=== PATIENT | female | born 1965 | race Hispanic/Latino ===

== ENCOUNTER 2019-06-08 14:20 | Emergency (ER) | payer SELFPAY ==
[2019-06-08 15:18] LABS: Absolute Lymphocytes (CBC) 1.7 K/uL (0.7-4.9); Basophils % 0.3 % (0-1.3); Hematocrit 39.4 % (36.0-45.0); Lymphocytes % 30.9 % (15.3-44.8); MPV 8.4 fL (7.6-11.3); RBC Red Blood Cell Count 4.68 M/uL (3.86-4.86)
[2019-06-08] MEDS ORDERED: PHENYTOIN ER 100 MG CAP PO ONE (15:18)
[2019-06-08 15:28] LABS: BUN Blood Urea Nitrogen 13 mg/dL (7-18); Bicarbonate 26 mmol/L (21-32); Glucose Level 88 mg/dL (74-106); Potassium 3.8 mmol/L (3.5-5.1); Sodium Level 139 mmol/L (136-145)
[2019-06-08 15:30] LABS: Barbiturates NEGATIVE (NEGATIVE); Benzodiazepines NEGATIVE (NEGATIVE); Cocaine NEGATIVE (NEGATIVE); METHAMPHETAM NEGATIVE (NEGATIVE); Methadone NEGATIVE (NEGATIVE); Opiates NEGATIVE (NEGATIVE); Phencyclidine NEGATIVE (NEGATIVE); THC Cannibis NEGATIVE (NEGATIVE)
[2019-06-08 15:56] LABS: Urine Bacteria >50 /HPF (<20); Urine Culture Reflex Order REFLEXED
--- NOTE | 2019-06-08 16:08 | RAD REPORT ---
EXAM DESCRIPTION: RAD - Hand Right 3 View - 06/08/2019 3:57 pm CLINICAL HISTORY: PAIN Pain, seizure COMPARISON: No comparisons FINDINGS: No acute fracture or subluxation seen. Mild radiocarpal arthritic changes are present.
[2019-06-08 16:11] LABS: Urine Blood TRACE (NEG); Urine Glucose NEGATIVE (NEG); Urine Protein NEGATIVE (NEG); Urine Specific Gravity >1.030 (1.005-1.030)
--- NOTE | 2019-06-08 16:40 | ER ---
Nurse's Notes [facility] Name: Yanet Castillo Age: 53 yrs Sex: Female : 1965 Arrival Date: 06/08/2019 Time: 14:27 Bed 17 Private MD: Diagnosis: Epilepsy and recurrent seizures;Urinary tract infection, site not specified Presentation: 06/08 14:28 Presenting complaint: EMS states: pt had a witnessed seizure like activity lasting sg about 30 seconds with convulsions of the body, pt is a resident [facility], pt last known seizure activity reported to be in February 2019, denied any injuries at this time. Transition of care: patient was received from another setting of care (rehabilitation facility). Onset of symptoms was June 08, 2019. Risk Assessment: Do you want to hurt yourself or someone else? Patient reports no desire to harm self or others. Initial Sepsis Screen: Does the patient meet any 2 criteria? No. Patient's initial sepsis screen is negative. Does the patient have a suspected source of infection? No. Patient's initial sepsis screen is negative. Care prior to arrival: None. 14:28 Method Of Arrival: EMS: [facility] sg 14:28 Acuity: SOPHIE 3 sg Historical: - Allergies: 14:33 No Known Allergies; sg - Home Meds: 14:33 Dilantin Oral [Active]; sg - PMHx: 14:33 HIV; Bronchitis; sg - Immunization history:: Adult Immunizations unknown. - Social history:: Smoking status: Patient/guardian denies using tobacco. - Ebola Screening: : Patient negative for fever greater than or equal to 101.5 degrees Fahrenheit, and additional compatible Ebola Virus Disease symptoms Patient denies exposure to infectious person Patient denies travel to an Ebola-affected area in the 21 days before illness onset No symptoms or risks identified at this time. - Family history:: not pertinent. - Hospitalizations: : No recent hospitalization is reported. Screenin:09 Abuse screen: Denies threats or abuse. Denies injuries from another. Nutritional sg screening: No deficits noted. Tuberculosis screening: No symptoms or risk factors identified. Never had TB. Fall Risk None identified. Assessment: 15:10 Reassessment: Patient appears in no apparent distress at this time. Patient and/or sg family updated on plan of care and expected duration. Pain level reassessed. Patient is alert, oriented x 3, equal unlabored respirations, skin warm/dry/pink. Vital Signs: 14:33 BP 148 / 96; Pulse 64 MON; Resp 17 S; Temp 97.6; Pulse Ox 100% on R/A; sg 15:32 BP 140 / 74; Pulse 63; Resp 17; Pulse Ox 100% on R/A; sg ED Course: 14:27 Patient arrived in ED. sg 14:32 Triage completed. sg 14:33 Arm band placed on. sg 14:52 Robbin Kimble MD is Attending Physician. rn 15:01 Bubba Estrada RN is Primary Nurse. sg 15:09 No provider procedures requiring assistance completed. Initial lab(s) drawn, by nm, sg sent to lab. Urine collected: clean catch specimen. 15:24 EKG done, by aircraft maintenance technician. reviewed by Robbin Kimble MD. sm3 Administered Medications: 15:20 Drug: Dilantin 500 mg Route: PO; sg Outcome: 16:38 Discharge ordered by . rn 16:43 Patient left the ED. sg Signatures: Bubba Estrada, RN RN Robbin Kimble MD MD rn Montes, Shakira sm3
--- NOTE | 2019-06-08 16:41 | EDPHYS ---
Physician Documentation [facility] Name: Yanet Castillo Age: 53 yrs Sex: Female : 1965 Arrival Date: 06/08/2019 Time: 14:27 Bed 17 Private MD: ED Physician Robbin Kimble HPI: 06/08 15:09 This 53 yrs old Other Female presents to ER via EMS with complaints of Probable Seizure.rn 15:09 The patient presents after having a single isolated seizure. Character of seizure(s): rn Loss of consciousness: the patient did not lose consciousness, Motor activity: generalized, Incontinence: none, Apnea: the patient did not experience apnea, Circulation: the patient did not experience evidence of pulse disturbance. Associated injury: The patient did not suffer any apparent associated injury. Current symptoms: Currently, the patient is not experiencing any symptoms. The patient has experienced similar episodes in the past. Reports has had seizures for years, is supposed to take dilantin, but has not been on dilantin for sometime. Last seizure was in february of this year. Seizures as result of previous head trauma. No fever or injury. States HIV+ but last check at [facility] was undetectable. No chest pain/sob/abd pain.. Historical: - Allergies: 14:33 No Known Allergies; sg - Home Meds: 14:33 Dilantin Oral [Active]; sg - PMHx: 14:33 HIV; Bronchitis; sg - Immunization history:: Adult Immunizations unknown. - Social history:: Smoking status: Patient/guardian denies using tobacco. - Ebola Screening: : Patient negative for fever greater than or equal to 101.5 degrees Fahrenheit, and additional compatible Ebola Virus Disease symptoms Patient denies exposure to infectious person Patient denies travel to an Ebola-affected area in the 21 days before illness onset No symptoms or risks identified at this time. - Family history:: not pertinent. - Hospitalizations: : No recent hospitalization is reported. ROS: 15:09 Constitutional: Negative for fever, chills, and weight loss, Eyes: Negative for injury, rn pain, redness, and discharge, Neck: Negative for injury, pain, and swelling, Cardiovascular: Negative for chest pain, palpitations, and edema, Respiratory: Negative for shortness of breath, cough, wheezing, and pleuritic chest pain, Abdomen/GI: Negative for abdominal pain, nausea, vomiting, diarrhea, and constipation, MS/Extremity: Negative for injury and deformity, Skin: Negative for injury, rash, and discoloration, Neuro: Negative for headache, weakness, numbness, tingling Exam: 15:09 Constitutional: This is a well developed, well nourished patient who is awake, alert, rn and in no acute distress. Head/Face: Normocephalic, atraumatic. Eyes: Pupils equal round and reactive to light, extra-ocular motions intact. Lids and lashes normal. Conjunctiva and sclera are non-icteric and not injected. Cornea within normal limits. Periorbital areas with no swelling, redness, or edema. ENT: MMM Neck: Trachea midline, no thyromegaly or masses palpated, and no cervical lymphadenopathy. Supple, full range of motion without nuchal rigidity, or vertebral point tenderness. No Meningismus. Cardiovascular: Regular rate and rhythm. No pulse deficits. Respiratory: Lungs have equal breath sounds bilaterally, clear to auscultation. No increased work of breathing, no retractions or nasal flaring. Abdomen/GI: soft, non-tender MS/ Extremity: Pulses equal, no cyanosis. Neurovascular intact. Full, normal range of motion. Equal circumference. Neuro: Awake and alert, GCS 15, oriented to person, place, time, and situation. Cranial nerves II-XII grossly intact. Motor strength 5/5 in all extremities. Sensory grossly intact. Cerebellar exam normal. 15:22 ECG was reviewed by the Attending Physician. rn Vital Signs: 14:33 BP 148 / 96; Pulse 64 MON; Resp 17 S; Temp 97.6; Pulse Ox 100% on R/A; sg 15:32 BP 140 / 74; Pulse 63; Resp 17; Pulse Ox 100% on R/A; sg MDM: 14:52 Patient medically screened. rn 16:37 Differential diagnosis: seizure. Data reviewed: vital signs, nurses notes, lab test rn result(s), EKG, radiologic studies, and as a result, I will discharge patient. Counseling: I had a detailed discussion with the patient and/or guardian regarding: the historical points, exam findings, and any diagnostic results supporting the discharge/admit diagnosis, lab results, radiology results, the need for outpatient follow up, to return to the emergency department if symptoms worsen or persist or if there are any questions or concerns that arise at home. Response to treatment: the patient's condition has returned to base line, the patient is now symptom free, and as a result, I will discharge patient. Special discussion: I discussed with the patient/guardian in detail that at this point there is no indication for admission to the hospital. It is understood, however, that if the symptoms persist or worsen the patient needs to return immediately for re-evaluation. 06/08 14:44 Order name: Urine Dipstick--Ancillary (enter results); Complete Time: 16:37 bd 06/08 14:44 Order name: Urine --Ancillary (enter results); Complete Time: 16:37 bd 06/08 14:45 Order name: Glucose, Ancillary Testing; Complete Time: 14:52 EDMS 06/08 14:57 Order name: CBC with Diff; Complete Time: 16:01 06/08 14:57 Order name: Basic Metabolic Panel; Complete Time: 16:01 06/08 14:57 Order name: Urine Drug Screen; Complete Time: 16:01 06/08 14:57 Order name: Urine Microscopic Only; Complete Time: 16:01 06/08 14:57 Order name: Urine Dipstick-Ancillary (obtain specimen); Complete Time: 15:02 06/08 14:57 Order name: EKG; Complete Time: 14:59 06/08 14:57 Order name: EKG - Nurse/Tech; Complete Time: 16:20 06/08 15:12 Order name: XRAY Hand RIGHT 3 View 06/08 16:16 Order name: Urine Culture EDMS EC:22 Rate is 61 beats/min. Rhythm is regular. QRS [place] is Normal. [place] interval is normal. QRS rn interval is normal. QT interval is normal. No Q waves. T waves are Normal. No ST changes noted. Clinical impression: Normal ECG. Interpreted by me. Reviewed by me. Administered Medications: 15:20 Drug: Dilantin 500 mg Route: PO; sg Disposition: 06/08/19 16:38 Discharged to Home. Impression: Epilepsy and recurrent seizures, Urinary tract infection, site not specified. - Condition is Stable. - Discharge Instructions: Seizure, Adult, Urinary Tract Infection, Adult. - Prescriptions for Dilantin Extended 100 mg Oral capsule - take 3 capsule by ORAL route once daily; 90 capsule. Macrobid 100 mg Oral Capsule - take 1 capsule by ORAL route every 12 hours for 7 days; 14 capsule. - Medication Reconciliation Form, Thank You Letter, Antibiotic Education, Prescription Opioid Use form. - Follow up: Private Physician; When: As needed; Reason: Recheck today's complaints, Re-evaluation by your physician. - Problem is new. - Symptoms have improved. Signatures: Dispatcher [employer] EDBubba Whitman RN RN sg Robbin Kimble MD MD contracts attorney: (The following items were deleted from the chart) 16:43 16:38 06/08/2019 16:38 Discharged to Home. Impression: Epilepsy and recurrent seizures; sg Urinary tract infection, site not specified. Condition is Stable. Forms are Medication Reconciliation Form, Thank You Letter, Antibiotic Education, Prescription Opioid Use. Follow up: Private Physician; When: As needed; Reason: Recheck today's complaints, Re-evaluation by your physician. Problem is new. Symptoms have improved. rn
--- NOTE | 2019-06-08 18:24 | EKG ---
Test Date: 2019-06-08 Test Time: 15:20:12 Metal Fabricating Inspector: AMY MEASUREMENT RESULTS: Intervals: Rate: 61 ME: 146 QRSD: 88 QT: 430 QTc: 432 [place]: P: 40 ME: 146 QRS: 36 T: 53 INTERPRETIVE STATEMENTS: Normal sinus rhythm Normal ECG No previous ECG available for comparison Electronically Signed On 06-08-19 18:23:30 CDT by Tc Zheng
== END 2019-06-08 16:43 | disposition home or self-care (01) ==
LOC: ER 14:20
DX: N39.0 Urinary tract infection, site not specified (principal); Z21 Asymptomatic human immunodeficiency virus [HIV] infection status
CPT/HCPCS: 36415; 80048; 80307; 81003; 81015; 81025; 82962; 85025; 87086; 87088; 93005